=== PATIENT | female | born 1955 | race Caucasian/White ===

== ENCOUNTER → 2024-03-06 | Outpatient (CLI) | payer MEDICARE ==
--- NOTE | 2024-03-07 17:55 | CT ---
EXAMINATION TYPE: CT chest wo con CT DLP: 295 mGycm, Automated exposure control for dose reduction was used. DATE OF EXAM: 03/06/2024 12:22 PM COMPARISON: None CLINICAL INDICATION:Female, 68 years old with history of J44.9 CHRONIC OBSTRUCTIVE PULMONARY DISEASE, UNSPE; [facility], TECHNIQUE: Multiple axial images were obtained through the chest. Sagittal and coronal reformats were created for review. Contrast used: mL of (None if empty) Oral contrast used: (None if empty) FINDINGS: LUNGS/ PLEURA: No focal consolidation, pneumothorax or pleural effusion. Moderate centrilobular emphy sema changes. No clinically significant pulmonary nodules. AIRWAY: Patent and unremarkable. HEART: Size within normal limits. Mild coronary artery atherosclerosis. MEDIASTINUM: No gross evidence of adenopathy. VASCULATURE: No aortic aneurysm. MUSCULOSKELETAL: Mild disc degeneration changes are present throughout the thoracolumbar spine. SOFT TISSUES/LYMPH NODES: Unremarkable. LOWER NECK: No significant findings. UPPER ABDOMEN: No significant findings. IMPRESSION: 1. No evidence for acute process. Tinw-ra-jcylcypp emphysema. 2. No suspicious pulmonary nodules. Follow up recommendations for incidental pulmonary nodules, if there are any, are per [employer] [employer] or [employer]. [email or web address].org/articles/[email or web address]?[email or web address]
== END | disposition home or self-care (01) ==
LOC: RADCTMAIN 11:43
PROVIDERS: ATTEND Internal Medicine Pulmonary Disease
DX: J43.2 Centrilobular emphysema (principal); J44.9 Chronic obstructive pulmonary disease, unspecified; E88.01 Alpha-1-antitrypsin deficiency
CPT/HCPCS: 71250